=== PATIENT | female | born 1960 | race Asian ===

== ENCOUNTER → 2022-10-02 | Outpatient (CLI) | payer BC ==
[2022-10-02 15:42] LABS: BASOPHILS % 0.6 % (0.0-2.0); EOSINOPHILS % 1.8 % (0.0-5.0); HEMOGLOBIN. 14.6 g/dL (12.0-16.0); MEAN CORPUSCULAR VOLUME 97.2 fL (81.0-99.0); MEAN PLATELET VOLUME 7.6 fl (7.4-10.4); MONOCYTES % 8.8 % (2.0-8.0); NEUTROPHILS % 58.8 % (40.0-76.0); PLATELET 228 x1000/uL (130-400); RED BLOOD CELL COUNT 4.42 mill/uL (4.2-5.4); RED CELL DISTRIBUTION WIDTH 11.9 % (11.6-14.6)
[2022-10-02 16:09] LABS: CHLORIDE 104 mEq/L (98-107)
[2022-10-02 16:22] LABS: HDL CHOLESTEROL 93 mg/dL (40-59); LDL CHOLESTEROL 111 mg/dL (5-100); T4 FREE 1.28 ng/dL (0.76-1.46)
== END | disposition home or self-care (01) ==
LOC: LAB 14:49
PROVIDERS: ATTEND Internal Medicine
DX: I10 Essential (primary) hypertension (principal); E11.9 Type 2 diabetes mellitus without complications; E78.5 Hyperlipidemia, unspecified; E55.9 Vitamin D deficiency, unspecified
CPT/HCPCS: 36415; 80053; 80061; 82248; 82306; 83036; 84439; 84443; 85025

== ENCOUNTER 2023-09-23 23:27 | Emergency (ER) | payer BC ==
[~2023-09-23] VITALS: Ht 152.4 cm; Wt 60.0 kg
[2023-09-23 23:47] VITALS: BP 149/95; PULSE 80; RESP 16; TEMP 97.9; O2SAT 99
[2023-09-24] MEDS ORDERED: BENZ100C86 MT (01:41)
== END 2023-09-24 02:15 | disposition home or self-care (01) ==
LOC: ER 23:27
DX: B34.9 Viral infection, unspecified (principal); I10 Essential (primary) hypertension; Z88.0 Allergy status to penicillin; Z90.710 Acquired absence of both cervix and uterus
CPT/HCPCS: 99283; 71045; Z7610